=== PATIENT | female | born 1950 | race Hispanic/Latino ===

== ENCOUNTER 2019-05-21 06:47 | Day surgery (SDC) | payer MEDICARE ==
[2019-05-21] MEDS ORDERED: ECOTRIN PO ONE (07:10)
[2019-05-21 07:29] LABS: Basophils # (Auto) 0.1 K/mm3 (0.0-0.1); Basophils % (Auto) 1.2 % (0.0-1.8); Eosinophils # (Auto) 0.3 K/mm3 (0.0-0.4); Eosinophils % (Auto) 3.7 % (0.0-4.3); Hemoglobin 16.4 gm/dl (10.1-14.3); Mean Corpuscular HGB Conc 34 % (30-34); Mean Corpuscular Volume 87 fl (79-97); Monocytes # (Auto) 0.6 K/mm3 (0.0-0.8); Monocytes % (Auto) 7.4 % (0.0-7.3); Platelet Count 184 K/mm3 (140-440); Red Blood Count 5.49 M/mm3 (3.65-5.03); Red Cell Distribution Width 14.4 % (13.2-15.2)
[2019-05-21 07:39] LABS: BUN/Creatinine Ratio 19; Blood Urea Nitrogen 17 mg/dL (7-17); Calcium 9.1 mg/dL (8.4-10.2); Hemolysis Index 9
[2019-05-21 07:41] LABS: INR 0.93 (0.87-1.13); Partial Thromboplastin Time 24.7 Sec. (24.2-36.6)
[2019-05-21] MEDS ORDERED: NACL 0.9% 500 ML 500 ML IV SCH (08:00)
[2019-05-21] MEDS ORDERED: HEPARIN/NS 5000 UNIT/500ML(CATH LAB) 1,000 ML IR ONE (08:49)
[2019-05-21] MEDS ORDERED: HEPARIN 10,000 UNITS/10 ML ONE (08:49)
[2019-05-21] MEDS ORDERED: NITROGLYCERIN SYRINGE 0 ML ONE (08:50)
[2019-05-21] MEDS ORDERED: CALAN ONE (08:50)
[2019-05-21] MEDS: XYLOCAINE 2% INFILTRATI ONE ×2 (09:11→09:20)
[2019-05-21] MEDS: VERSED ONE ×2 (09:11→09:17)
[2019-05-21] MEDS: SUBLIMAZE ONE ×3 (09:11→09:23)
[2019-05-21] MEDS: APRESOLINE ONE ×2 (09:25→09:28)
[2019-05-21] MEDS ORDERED: NITROSTAT SL ONE (09:33)
--- NOTE | 2019-05-21 09:47 | Short Stay Summary ---
Short Stay Documentation Date of service: 05/21/19 - History H&P: obtained from office - Allergies and Medications Current Medications: Allergies ibuprofen [From Motrin] Allergy (Unverified 05/21/19 06:48) UPSET STOMACH Home Medications Medication Instructions Recorded Confirmed Last Taken Type Aspirin [Adult Aspirin] 81 mg PO DAILY 05/21/19 05/21/19 05/20/19 History Empagliflozin/Metformin HCl 1 each PO BID 05/21/19 05/21/19 05/20/19 History [Synjardy 12.5-1,000 mg Tablet] Esomeprazole Magnesium [NexIUM] 40 mg PO QDAY PRN 05/21/19 05/21/19 05/20/19 History Insulin Aspart [Novolog] 6 unit SQ TIDAC 05/21/19 05/21/19 05/20/19 History Insulin Degludec [Tresiba 40 units SQ QHS 05/21/19 05/21/19 05/20/19 History Flextouch U-100] Lisinopril [Zestril TAB] 20 mg PO DAILY 05/21/19 05/21/19 05/20/19 History Rosuvastatin Calcium [Crestor] 20 mg PO DAILY 05/21/19 05/21/19 05/20/19 History Verapamil ER [Calan Sr] 240 mg PO DAILY 05/21/19 05/21/19 05/20/19 History Active Medications Sodium Chloride (Nacl 0.9% 500 Ml) 500 mls @ 50 mls/hr IV DIRECT MADHAVI Stop: 05/21/19 17:59 Last Admin: 05/21/19 08:16 Dose: 50 mls/hr Documented by: - Brief post op/procedure progress note Date of procedure: 05/21/19 Pre-op diagnosis: sob and abnl stress test Post-op diagnosis: other (cad) Procedure: see report Anesthesia: local Estimated blood loss: none Pathology: none - Disposition Condition at discharge: Good Disposition: [id number] TO HOME OR SELFCARE - Discharge Diagnoses (1) Hypertension Status: Chronic Qualifiers: Hypertension type: essential hypertension Qualified Code(s): I10 - Essential (primary) hypertension (2) Diabetes 1.5, managed as type 1 Status: Chronic (3) Morbid (severe) obesity due to excess calories Status: Chronic (4) Hyperlipidemia Status: Chronic Qualifiers: Hyperlipidemia type: mixed hyperlipidemia Qualified Code(s): E78.2 - Mixed hyperlipidemia (5) CAD (coronary artery disease) Status: Acute Qualifiers: Coronary Disease-Associated Artery/Lesion type: [place] artery Associated angina: with stable angina Short Stay Discharge Plan Activity: advance as tolerated Diet: low fat, low cholesterol, low salt, diabetic Special Instructions: hold Metformin (for two days) Follow up with: GAB VIGIL NP [Other] - 7 Days
[2019-05-21] MEDS ORDERED: ZOFRAN ONE (09:49)
--- NOTE | 2019-05-21 09:57 | Cardiac Catherization Report ---
CLINICAL INFORMATION: This is a 69-year-old female with morbid obesity, has been having shortness of breath, has hypertension, diabetes, cholesterol with abnormal stress test with anterior wall ischemia, is here for left heart catheterization. Left heart catheterization performed via the right femoral artery, sterile technique, local anesthesia. A 5-[place] groin sheath inserted. The patient was done, moderate sedation. Total sedation time was 15 minutes, started 9:16 a.m., finished at 9:31 a.m. PROCEDURE INFORMATION: Left system JL4 catheter. Left main is a medium caliber vessel, patent, bifurcates into medium caliber LAD that is patent with mild luminal irregularities, small diagonal vessels are patent. Ramus small caliber vessel less than 2 mm patent with mild luminal irregularities. Circumflex is a small caliber vessel that is patent, then bifurcates. OM1 that is a small caliber vessel, less than 2 mm, has a proximal 95% lesion. Distal surface small caliber vessel, patent. The distal caliber of the vessels are small caliber. RCA engaged with JR4 catheter, is a medium to large caliber vessel, patent with mild luminal irregularities. PDA and PLV are small caliber vessel, patent. LV gram done in [place] and [place] view shows EF 55-60%, LVEDP 25 mmHg, LV is 227, aortic is 230/90. No gradient across the aortic valve on pullback. A 5-[place] catheters all taken over guidewire, 5-[place] groin sheath was discontinued. Manual pressure held. No hematoma, no bleeding. SUMMARY: 1. Left main patent, LAD patent, circumflex patent, ramus small patent, OM1 less than 2 mm vessel 95% lesion small diagonal. RCA medium to large caliber, patent with mild luminal irregularities, small PDA. Distal vessels are small caliber. 2. Normal LV function with elevated blood pressure. The patient will be treated medically for small vessel disease and for BP control. Discussed in detail with the patient and patient's family. JOB# [id number] AMISHA/TASHA
[2019-05-21] MEDS ORDERED: ULTRAM PO PRN (10:30)
[2019-05-21 14:19] VITALS: BP 150/63
== END 2019-05-21 14:20 | disposition home or self-care (01) ==
LOC: CATHLABREC 06:47
PROVIDERS: ATTEND Internal Medicine
DX: R06.02 Shortness of breath (principal); R94.39 Abnormal result of other cardiovascular function study; I25.10 Atherosclerotic heart disease of native coronary artery without angina pectoris; I10 Essential (primary) hypertension; E10.9 Type 1 diabetes mellitus without complications; E78.2 Mixed hyperlipidemia; E66.01 Morbid (severe) obesity due to excess calories; K21.9 Gastro-esophageal reflux disease without esophagitis; M19.90 Unspecified osteoarthritis, unspecified site; Z79.899 Other long term (current) drug therapy; Z79.82 Long term (current) use of aspirin; Z72.89 Other problems related to lifestyle; Z83.3 Family history of diabetes mellitus; Z79.4 Long term (current) use of insulin; Z98.41 Cataract extraction status, right eye; Z98.42 Cataract extraction status, left eye; Z90.49 Acquired absence of other specified parts of digestive tract; Z68.42 Body mass index [BMI] 45.0-49.9, adult; Z98.890 Other specified postprocedural states; Z88.8 Allergy status to other drugs, medicaments and biological substances; Z82.49 Family history of ischemic heart disease and other diseases of the circulatory system
CPT/HCPCS: 36415; 80048; 82962; 85025; 85610; 85730; 93005; 93010; 93458; 99156; J0360; J1644; J2250; J2405; J3010; J7040; Q9967